=== PATIENT | female | born 1980 | race Hispanic/Latino ===

== ENCOUNTER 2022-02-22 14:57 | Inpatient (IN) | payer BC ==
[2022-02-22] MEDS ORDERED: SODIUM CHLORIDE 0.9% 1000 ML 1,000 ML IV ONE ×2 (16:09→17:19)
[2022-02-22 16:42] LABS: Mean Corpuscular HGB Conc 30 % (30-34); Platelet Count 352 K/mm3 (140-440); Red Blood Count 4.02 M/mm3 (3.65-5.03); Red Cell Distribution Width 15.4 % (13.2-15.2)
[2022-02-22 16:52] LABS: Hematocrit 45.6 % (30.3-42.9); Hemoglobin 13.6 gm/dl (10.1-14.3); Mean Corpuscular Volume 113 fl (79-97)
[2022-02-22 17:04] LABS: Mucus,Urine FEW /HPF; WBC,Urine < 1.0 /HPF (0.0-6.0)
[2022-02-22 17:07] LABS: Alanine Aminotransferase 31 units/L (7-56); Albumin 4.9 g/dL (3.9-5); BUN/Creatinine Ratio 28; Blood Urea Nitrogen 25 mg/dL (7-17); Calcium 9.8 mg/dL (8.4-10.2); Hemolysis Index 74
--- NOTE | 2022-02-22 17:11 | Emergency Department Report ---
ED General Adult HPI - General Chief complaint: Hyperglycemia Stated complaint: HYPERGLYCEMIA Time Seen by Provider: 02/22/22 16:02 Source: patient, EMS Mode of arrival: Stretcher Limitations: No Limitations - History of Present Illness Initial comments: Patient is a 41-year-old female with history of insulin-dependent diabetes brought in by EMS for hyperglycemia and worsening mental status. She is accompanied by her who states she was in DKA roughly a month ago. They report malfunctioning of her insulin pump yesterday. She reports associated nausea. EMS unable to establish IV in route. Severity scale (0 -10): 0 - Related Data Allergies Allergy/AdvReac Type Severity Reaction Status Date / Time No Known Allergies Allergy Unverified 02/22/22 16:40 ED Review of Systems ROS: Stated complaint: HYPERGLYCEMIA Other details as noted in HPI Constitutional: malaise Respiratory: denies: cough, shortness of breath, wheezing Cardiovascular: denies: chest pain, palpitations Gastrointestinal: nausea. denies: abdominal pain, vomiting Skin: denies: rash, lesions Neurological: denies: headache, weakness, paresthesias Psychiatric: denies: anxiety, depression ED Physical Exam - General Limitations: No Limitations General appearance: alert, in distress - Head Head exam: Present: atraumatic, normocephalic - Neck Neck exam: Present: normal inspection - Respiratory Respiratory exam: Present: normal lung sounds bilaterally, other (Kussmaul's res piration) - Cardiovascular Cardiovascular Exam: Present: normal rhythm, tachycardia, normal heart sounds - GI/Abdominal GI/Abdominal exam: Present: soft. Absent: distended, tenderness - Rectal Rectal exam: Present: deferred - Speculum exam: Absent: vaginal discharge - Neurological Exam Neurological exam: Present: alert, oriented X3, CN II-XII intact - Psychiatric Psychiatric exam: Present: normal affect, normal mood - Skin Skin exam: Present: warm, dry, intact, normal color ED Course Vital Signs 02/22/22 02/22/22 02/22/22 15:19 16:38 16:41 Temperature 98.2 F Pulse Rate 130 H 143 H Respiratory 16 29 H 28 H Rate Blood Pressure 136/82 122/48 [Left] O2 Sat by Pulse 100 99 99 Oximetry ED Medical Decision Making - Lab Data Result diagrams: 02/22/22 16:20 02/22/22 16:20 - EKG Data -: EKG Interpreted by Me EKG shows normal: sinus rhythm Rate: tachycardia - Medical Decision Making Patient brought in by EMS with complaint of hyperglycemia and altered mental status. IV access obtained and patient started on IV fluids. Labs reviewed and are consistent with DKA. CO2 is 3. Anion gap is 46. White blood cell count 22. We will start insulin infusion and admit to ICU. Critical care attestation.: If time is entered above; I have spent that time in minutes in the direct care of this critically ill patient, excluding procedure time. ED Disposition Clinical Impression: DKA (diabetic ketoacidosis) Disposition: ADMITTED INPATIENT Is pt being admited?: Yes Condition: Critical Instructions: Diabetic Ketoacidosis (ED)
[2022-02-22 17:15] LABS: Bilirubin,Urine Negative (Negative); Color,Urine Straw (Yellow)
[2022-02-22 17:16] LABS: Blood,Urine Trace (Negative); Urobilinogen,Urine < 2.0 mg/dL (<2.0)
[2022-02-22 17:43] LABS: Bilirubin,Direct < 0.2 mg/dL (0-0.2)
--- NOTE | 2022-02-22 17:43 | History and Physical Report ---
History of Present Illness Chief complaint: Her blood sugar is high History of present illness: 41 YO Female with DM with insulin pump in place presents to ED for evaluation. Patient is confused and lethargic and is unable to provide history. Patient history taken from EMS staff, ED staff, as well as the patient's who was at bedside during exam and interview. As per the patient reported malfunctioning of her insulin pump yesterday and has experienced elevated blood glucose levels over the past 1 day. Patient was found to have worsening confusion today. EMS was notified and upon arrival the patient was found to be in distress and subsequently transported to [facility] for further care and evaluation of the aforementioned symptoms. The patient was seen and evaluated in the emergency department. All lab and imaging studies reviewed. The patient was found to have DKA complicated by metabolic encephalopathy, sepsis, volume depletion. Patient admitted to ICU and initiated on DKA protocol as well as sepsis protocol. No reports of fever, chills, chest pain, palpitation, productive cough, skin rash, recent contact, known exposure to COVID-19. No prior admission for review. No medication listed at time of admission for reconciliation. Advanced care planning conducted in ED. Critical care team consulted in ED. Past History Past Medical History: diabetes Past Surgical History: No surgical history, Other (Reviewed) Social history: , lives with family Family history: hypertension Medications and Allergies Allergies Allergy/AdvReac Type Severity Reaction Status Date / Time No Known Allergies Allergy Unverified 02/22/22 16:40 Active Meds: Active Medications Sodium Chloride (Nacl 0.9% 1000 Ml) 1,000 mls @ 999 mls/hr IV BOLUS ONE Stop: 02/22/22 18:19 Review of Systems ROS unobtainable: due to mental status Exam - Constitutional Vitals: Temp Pulse Resp BP Pulse Ox 98.2 F 143 H 28 H 122/48 99 02/22/22 15:19 02/22/22 16:41 02/22/22 16:41 02/22/22 16:41 02/22/22 16:41 General appearance: Present: severe distress - EENT Eyes: Present: PERRL ENT: clear oral mucosa, hearing decreased, other (Oral mucosa dry) - Neck Neck: Present: supple, normal ROM - Respiratory Respiratory effort: normal Respiratory: bilateral: diminished - Cardiovascular Rhythm: regular Heart Sounds: Present: S1 & S2 - Extremities Extremities: pulses symmetrical, No edema Peripheral Pulses: abnormal (Capillary refill greater than 3.5 seconds) - Abdominal General gastrointestinal: Present: soft, non-tender, non-distended, normal bowel sounds Female genitourinary: Present: normal - Integumentary Integumentary: Present: dry, clammy, decreased turgor - Musculoskeletal Musculoskeletal: generalized weakness - Psychiatric Psychiatric: no appropriate mood/affect, no intact judgment & insight, no memory intact - Neurologic Neurologic: CNII-XII intact, moves all extremities, no gait normal Results - Labs CBC & Chem 7: 02/22/22 16:20 02/22/22 17:56 Labs: Abnormal lab results 02/22/22 02/22/22 Range/Units 16:20 16:20 WBC 22.6 H (4.5-11.0) K/mm3 Hct 45.6 H (30.3-42.9) % MCV 113 H (79-97) fl MCH 34 H (28-32) pg RDW 15.4 H (13.2-15.2) % Potassium 5.7 H (3.6-5.0) mmol/L Chloride 92.5 L (98-107) mmol/L Assessment and Plan - Patient Problems (1) DKA (diabetic ketoacidosis) Current Visit: Yes Status: Acute Qualifiers: Diabetes mellitus complication detail: with coma Plan to address problem: DKA protocol: Insulin drip, IV fluid resuscitation therapy, serial lactic acid level, anion gap, monitor fluid balance, serial BMP The high probability of a clinically significant, sudden or life threatening deterioration of the [endocrine, neuro, renal] system(s) required my full and direct attention, intervention and personal management. The aggregate critical care time was [95] minutes. This time is in addition to time spent performing reported procedures but includes the following: [x] Data Review and interpretation [x] Patient assessment and monitoring of vital signs [x] Documentation [x] Medication orders and management (2) Sepsis Current Visit: Yes Status: Acute Qualifiers: Severe sepsis shock status: unspecified Plan to address problem: Sepsis protocol: CBC, BMP, chest x-ray, urinalysis, IV antibiotic therapy, IV fluid resuscitation therapy, maintain mean arterial pressure greater than or equal to 65, blood culture. (3) Toxic metabolic encephalopathy Current Visit: Yes Status: Acute Plan to address problem: Treat sepsis, IV fluid resuscitation therapy, supportive care. (4) Volume depletion Current Visit: Yes Status: Acute Plan to address problem: IV fluid resuscitation therapy, BMP, repeat BMP in a.m., monitor fluid balance. (5) Hyperkalemia Current Visit: Yes Status: Acute Plan to address problem: BMP, repeat BMP in a.m., IV fluid resuscitation therapy, insulin therapy, no EKG changes. (6) DVT prophylaxis Current Visit: Yes Status: Acute Plan to address problem: SCD to bilateral lower extremities while in bed (7) Advance care planning Current Visit: Yes Status: Acute Plan to address problem: Disease education done, care plan discussed, diagnoses discussed, prognosis discussed, patient is full code. Patient acknowledges understanding and agreement with current care plan. +30 minutes. (8) Preventative health care Current Visit: Yes Status: Acute Plan to address problem: Patient has been counseled regarding consistent carbohydrate diet, monitoring of insulin pump. +30 minutes.
[2022-02-22] MEDS ORDERED: ALBUTEROL 2.5 MG/3 ML NEBU IH PRN (17:44)
[2022-02-22] MEDS ORDERED: HYDROmorphone 0.5 MG/0.5 ML INJ IV PRN ×2 (17:44)
[2022-02-22] MEDS ORDERED: DEXTROSE 50% IN WATER (25GM) 50 ML SYRINGE IV PRN (17:44)
[2022-02-22] MEDS ORDERED: ACETAMINOPHEN 325 MG TAB PO PRN ×2 (17:44)
[2022-02-22] MEDS ORDERED: oxyCODONE /ACETAMINOPHEN 5-325MG TAB PO PRN (17:44)
[2022-02-22] MEDS ORDERED: SODIUM BICARB 8.4% 50 MEQ/50 ML SYRINGE IV ONE ×2 (17:49)
--- NOTE | 2022-02-22 17:53 | XRay Report ---
CHEST 1 VIEW INDICATION: DKA, leukocytosis. COMPARISON: None. FINDINGS: Support devices: None. Heart: Normal. Lungs/Pleura: No acute pulmonary or pleural findings. IMPRESSION: 1. No acute findings. Signer Name: Jc Childress MD Signed: 02/22/2022 5:49 PM Workstation Name: [id number]
[2022-02-22] MEDS ORDERED: SODIUM CHLORIDE 0.9% IV ONE (18:15)
[2022-02-22] MEDS ORDERED: SODIUM CHLORIDE 0.9% 1000 ML IV SOLN IV ONE (18:15)
[2022-02-22 18:21] LABS: Band Neutrophils # (Manual) 0.9 K/mm3; Basophils % (Manual) 0 % (0.0-1.8); Eosinophils % (Manual) 0 % (0.0-4.3); Total Cells Counted 100
[2022-02-22 18:26] LABS: Anisocytosis Few; Burr Cells Rare; Large Platelets Rare; Macrocytosis Few; Platelet Estimate Consistent w Auto; Poikilocytosis Rare
[2022-02-22 18:37] LABS: BUN/Creatinine Ratio 30; Blood Urea Nitrogen 24 mg/dL (7-17); Calcium 8.7 mg/dL (8.4-10.2); Hemolysis Index 236
[2022-02-22] MEDS ORDERED: INSULIN REGULAR, HUMAN 100 UNITS in SODIUM CHLORIDE 0.9% 99 ML IV SCH (19:00)
[2022-02-22] MEDS ORDERED: KETAMINE 500 MG/5 ML VIAL MDV IV ONE (19:00)
[2022-02-22] MEDS ORDERED: KETAMINE 500 MG/5 ML VIAL MDV ONE (19:06)
[2022-02-22] MEDS ORDERED: LORazepam 2 MG/ML VIAL ONE (19:33)
[2022-02-22] MEDS ORDERED: LORazepam 2 MG/ML VIAL IV ONE ×2 (19:50→20:00)
--- NOTE | 2022-02-22 20:14 | Procedure Note ---
Date of procedure: 02/22/22 Pre-op diagnosis: DKA, sepsis Post-op diagnosis: same Procedure: Right femoral vein triple-lumen catheter placement ultrasound guidance The patient was prepped and draped in the usual sterile fashion. A timeout was taken with the patient's nurse at bedside to identify the correct patient, the correct procedure, and the correct operative site. Ultrasound was utilized to localize the right femoral vein without difficulty. Local anesthesia obtained with 1% lidocaine. The Seldinger technique was utilized to access the right femoral vein under ultrasound guidance while using a seeker needle without difficulty. A guidewire was then advanced into the right femoral vein and the seeker needle removed. A scalpel was used to incise the skin. A dilator was then passed over the guidewire into the right femoral vein and subsequently removed. A preflush triple-lumen catheter was then advanced into the right femoral vein without difficulty and the guidewire subsequently removed. All 3 ports flush and drawl with ease. Estimated blood loss minimal. Complications none. Specimens none. Anesthesia: local Surgeon: RADHA VU Estimated blood loss: minimal Disposition: ICU
[2022-02-22] MEDS ORDERED: SODIUM CHLORIDE 0.9% 1000 ML 1,000 ML IV SCH (21:30)
[2022-02-23 00:01] LABS: Blood Urea Nitrogen 19 mg/dL (7-17); Calcium 6.5 mg/dL (8.4-10.2); Hemolysis Index 12
[2022-02-23 00:28] LABS: BUN/Creatinine Ratio 27
[2022-02-23 00:57] LABS: ABG Base Excess -27.1 mmol/L (-2.0-3.0); ABG HCO3 2.7 mmol/L (20.0-26.0); ABG Methemoglobin 0.7 % (0.0-1.5); ABG Oxygen Saturation 96.8 % (95.0-99.0); ABG PCO2 11.9 mm Hg; ABG PO2 114.1 mm Hg (80.0-90.0)
[2022-02-23 01:04] LABS: ABG PH 6.973 pH Units (7.350-7.450)
--- NOTE | 2022-02-23 01:13 | XRay Report ---
CHEST 1 VIEW INDICATION / CLINICAL INFORMATION: crackles and tachypnea. COMPARISON: 02/22/2022 FINDINGS: SUPPORT DEVICES: None. HEART / MEDIASTINUM: No significant abnormality. LUNGS / PLEURA: Right lower lobe airspace consolidation No pneumothorax. ADDITIONAL FINDINGS: No significant additional findings. IMPRESSION: 1. Right lower lobe infiltrate likely represents pneumonia Signer Name: Kin Lopez MD Signed: 02/23/2022 1:09 AM Workstation Name: [id number]
[2022-02-23] MEDS ORDERED: SODIUM BICARB 8.4% 50 MEQ/50 ML SYRINGE IV ONE (01:35)
[2022-02-23] MEDS ORDERED: SODIUM BICARBONATE 100 MEQ in WATER FOR INJECTION (PF) 1,000 ML IV SCH (02:00)
[2022-02-23] MEDS: D5W/0.45% NACL/KCL 20 MEQ 20 MEQ/1,000 ML BAG IV SCH ×2 (04:36→11:52)
[2022-02-23 09:20] LABS: Blood Urea Nitrogen 17 mg/dL (7-17); Hemolysis Index 0
[2022-02-23 09:37] LABS: Hematocrit 34.4 % (30.3-42.9); Hemoglobin 11.1 gm/dl (10.1-14.3); Mean Corpuscular HGB Conc 32 % (30-34); Mean Corpuscular Volume 105 fl (79-97); Platelet Count 188 K/mm3 (140-440); Red Blood Count 3.28 M/mm3 (3.65-5.03); Red Cell Distribution Width 14.1 % (13.2-15.2)
[2022-02-23 09:53] LABS: BUN/Creatinine Ratio 24
--- NOTE | 2022-02-23 10:11 | Progress Note ---
<ALLA FARIA - Last Filed: 02/23/22 17:16> Assessment and Plan Assessment and plan: This is a 41-year-old female with known past medical history of IDDM and hypothyroidism admitted for DKA Hospital Course to Date: 02/23: Mentation improved this am, stable on RA. Remains on DKA protocal and b carb gtt. Will hold sodium bcarb gtt in setting of hypernatremia, CO2 and anion gap improved. Continue insulin gtt and IVF resuscitation per DKA protocol. This an CXR reviewed, continue IV antibiotic for now. Repeat labs ordered, Check CRP and procal. Continue to trend lactic acid. Monitor and replete electrolytes as needed. Assessment and Plan #DKA (Diabetic Ketoacidosis) #Severe Anion Gap Metabolic Acidosis #IDDM- with insulin pump - [place] resident, here in [facility] for business - Insulin pump malfunction, patient did not have any back up insulin - Presented with high BG, with severe anion gap metabolic acidosis - DKA protocol was initiated and required Nabcarb gtt - Sodium Bcarb gtt held this am due to hypernatremia and CO2 improved - Continue insulin gtt and IVF resuscitation per DKA protocol - Monitor and replace electrolytes as needed - Monitor anion gap, serial Labs ordered - CCM consulted #Sepsis #CAP- RLL Pneumonia #Leukocytosis #Lactic Acidosis - CXR Right lower lobe infiltrate likely represents pneumonia - UA neg nitrate and leukocytes - With leukocytosis and elevated lactic - Patient is afebrile, stable on 2L NC - Empiric IV abx- Levaquin initiated - Trend CBC and Lactic acid - Check procal and CRP - CCM consulted #Acute Metabolic Encephalopathy - probably due to DKA - Mentation improved this am - Continue DKA protocol - Avoid benzodiazepine to reduce the possibility of delirium - PRN Analgesia for pain control - Maintenance of sleep-wake cycle #Hypernatremia #Hyperkalemia #Volume Depletion/Dehydration - Most likely due to DKA - ST on the monitor with no significant ST changes - Continue insulin gtt and IVF ressucitation per DKA protocol - Hold NaBcarb for now - Strict intake and output - Avoid nephrotoxic medications - Monitor and replace electrolytes as needed #Hypothyroidism - On levothyroxine and Liothyronine sodium at home - Resume home meds, Liothyronine sodium- nonformulary - Okay to use own med if check and approve by pharmacy #GI/DVT Prophylaxis - PPI- Pepcid - SCD to bilateral lower extremities while in bed #Advance Care Planning - Disease education, care plan discussed, diagnoses and prognosis discussed with patient and her at the bedside. Patient is full code. They acknowledged understanding and agreement with current care plan #Preventative Health Care - Patient has been counseled regarding consistent carbohydrate diet, monitoring of insulin pump The high probability of a clinically significant, sudden or life threatening deterioration of the [multiple] system(s) required my full and direct attention, intervention and personal management. The aggregate critical care time was [60] minutes. This time is in addition to time spent performing reported procedures but includes the following: [x] Data Review and interpretation [x] Patient assessment and monitoring of vital signs [x] Documentation [x] Medication orders and management Disposition Plan: ICU Total Time Spent with Patient (Minutes): 60 History Interval history: Patient seen and examined at the bedside. Drowsy but fully AAO, on 2L NC. Denied any pain nor any discomfort, n/v, no s/s of any acute distress. Patient remains on the DKA protocol, TD overnight Hospitalist Physical - Constitutional Vitals: Temp Pulse Resp BP Pulse Ox 97.5 F L 115 H 25 H 119/78 97 02/23/22 06:30 02/23/22 09:00 02/23/22 09:00 02/23/22 09:00 02/23/22 08:00 General appearance: Present: no acute distress - EENT Eyes: Present: PERRL, EOM intact ENT: hearing intact - Neck Neck: Present: normal ROM - Respiratory Respiratory effort: normal Respiratory: bilateral: diminished - Cardiovascular Rhythm: regular Heart Sounds: Present: S1 & S2 - Extremities Extremities: no ischemia, pulses intact, pulses symmetrical Peripheral Pulses: within normal limits - Abdominal General gastrointestinal: soft, non-distended, normal bowel sounds - Integumentary Integumentary: Present: clear, warm, dry - Psychiatric Psychiatric: appropriate mood/affect, cooperative, other (Drowsy) - Neurologic Neurologic: CNII-XII intact, moves all extremities, other (Drowsy) - Allied Health Allied health notes reviewed: nursing Results - Labs CBC & Chem 7: 02/23/22 08:34 02/23/22 08:34 Labs: Laboratory Last Values WBC 13.5 K/mm3 (4.5-11.0) H 02/23/22 08:34 RBC 3.28 M/mm3 (3.65-5.03) L 02/23/22 08:34 Hgb 11.1 gm/dl (10.1-14.3) 02/23/22 08:34 Hct 34.4 % (30.3-42.9) D 02/23/22 08:34 MCV 105 fl (79-97) H 02/23/22 08:34 MCH 34 pg (28-32) H 02/23/22 08:34 MCHC 32 % (30-34) 02/23/22 08:34 RDW 14.1 % (13.2-15.2) 02/23/22 08:34 Plt Count 188 K/mm3 (140-440) 02/23/22 08:34 Add Manual Diff Complete 02/22/22 16:20 Total Counted 100 02/22/22 16:20 Seg Neuts % (Manual) 84.0 % (40.0-70.0) H 02/22/22 16:20 Band Neutrophils % 4.0 % 02/22/22 16:20 Lymphocytes % (Manual) 8.0 % (13.4-35.0) L 02/22/22 16:20 Reactive Lymphs % (Man) 0 % 02/22/22 16:20 Monocytes % (Manual) 3.0 % (0.0-7.3) 02/22/22 16:20 Eosinophils % (Manual) 0 % (0.0-4.3) 02/22/22 16:20 Basophils % (Manual) 0 % (0.0-1.8) 02/22/22 16:20 Metamyelocytes % 1.0 % 02/22/22 16:20 Myelocytes % 0 % 02/22/22 16:20 Promyelocytes % 0 % 02/22/22 16:20 Blast Cells % 0 % 02/22/22 16:20 Nucleated RBC % Not Reportable 02/22/22 16:20 Seg Neutrophils # Man 19.0 K/mm3 (1.8-7.7) H 02/22/22 16:20 Band Neutrophils # 0.9 K/mm3 02/22/22 16:20 Lymphocytes # (Manual) 1.8 K/mm3 (1.2-5.4) 02/22/22 16:20 Abs React Lymphs (Man) 0.0 K/mm3 02/22/22 16:20 Monocytes # (Manual) 0.7 K/mm3 (0.0-0.8) 02/22/22 16:20 Eosinophils # (Manual) 0.0 K/mm3 (0.0-0.4) 02/22/22 16:20 Basophils # (Manual) 0.0 K/mm3 (0.0-0.1) 02/22/22 16:20 Metamyelocytes # 0.2 K/mm3 02/22/22 16:20 Myelocytes # 0.0 K/mm3 02/22/22 16:20 Promyelocytes # 0.0 K/mm3 02/22/22 16:20 Blast Cells # 0.0 K/mm3 02/22/22 16:20 WBC Morphology Not Reportable 02/22/22 16:20 Hypersegmented Neuts Not Reportable 02/22/22 16:20 Hyposegmented Neuts 1+ 02/22/22 16:20 Hypogranular Neuts Not Reportable 02/22/22 16:20 Smudge Cells Not Reportable 02/22/22 16:20 Toxic Granulation Not Reportable 02/22/22 16:20 Toxic Vacuolation Not Reportable 02/22/22 16:20 Dohle Bodies Not Reportable 02/22/22 16:20 Pelger-Huet Anomaly Not Reportable 02/22/22 16:20 Aracely Rods Not Reportable 02/22/22 16:20 Platelet Estimate Consistent w auto 02/22/22 16:20 Clumped Platelets Not Reportable 02/22/22 16:20 Plt Clumps, EDTA Not Reportable 02/22/22 16:20 Large Platelets Rare 02/22/22 16:20 Giant Platelets Not Reportable 02/22/22 16:20 Platelet Satelliting Not Reportable 02/22/22 16:20 Plt Morphology Comment Not Reportable 02/22/22 16:20 RBC Morphology Not Reportable 02/22/22 16:20 Dimorphic RBCs Not Reportable 02/22/22 16:20 Polychromasia Not Reportable 02/22/22 16:20 Hypochromasia Not Reportable 02/22/22 16:20 Poikilocytosis Rare 02/22/22 16:20 Anisocytosis Few 02/22/22 16:20 Microcytosis Not Reportable 02/22/22 16:20 Macrocytosis Few 02/22/22 16:20 Spherocytes Not Reportable 02/22/22 16:20 Pappenheimer Bodies Not Reportable 02/22/22 16:20 Sickle Cells Not Reportable 02/22/22 16:20 Target Cells Not Reportable 02/22/22 16:20 Tear Drop Cells Not Reportable 02/22/22 16:20 Ovalocytes Not Reportable 02/22/22 16:20 Helmet Cells Not Reportable 02/22/22 16:20 [place] Bodies Not Reportable 02/22/22 16:20 Geary Rings Not Reportable 02/22/22 16:20 [place] Cells Rare 02/22/22 16:20 Bite Cells Not Reportable 02/22/22 16:20 Crenated Cell Not Reportable 02/22/22 16:20 Elliptocytes Not Reportable 02/22/22 16:20 Acanthocytes (Spur) Not Reportable 02/22/22 16:20 Rouleaux Not Reportable 02/22/22 16:20 Hemoglobin C Crystals Not Reportable 02/22/22 16:20 Schistocytes Not Reportable 02/22/22 16:20 Malaria parasites Not Reportable 02/22/22 16:20 [place]ton Bodies Not Reportable 02/22/22 16:20 Hem Pathologist Commnt No 02/22/22 16:20 ABG pH 6.973 pH Units (7.350-7.450) L* 02/23/22 00:40 ABG pCO2 11.9 mm Hg 02/23/22 00:40 ABG pO2 114.1 mm Hg (80.0-90.0) H 02/23/22 00:40 ABG HCO3 2.7 mmol/L (20.0-26.0) L 02/23/22 00:40 ABG O2 Saturation 96.8 % (95.0-99.0) 02/23/22 00:40 ABG O2 Content 14.9 (0.0-44) 02/23/22 00:40 ABG Base Excess -27.1 mmol/L (-2.0-3.0) L 02/23/22 00:40 ABG Hemoglobin 11.0 gm/dl (12.0-16.0) L 02/23/22 00:40 ABG Carboxyhemoglobin 1.2 % (0.0-5.0) 02/23/22 00:40 ABG Methemoglobin 0.7 % (0.0-1.5) 02/23/22 00:40 Oxyhemoglobin 95.0 % (95.0-99.0) 02/23/22 00:40 FiO2 28 % 02/23/22 00:40 Sodium 146 mmol/L (137-145) H 02/23/22 08:34 Potassium 3.8 mmol/L (3.6-5.0) D 02/23/22 08:34 Chloride 116.9 mmol/L (98-107) H 02/23/22 08:34 Carbon Dioxide 14 mmol/L (22-30) L D 02/23/22 08:34 Anion Gap 19 mmol/L 02/23/22 08:34 BUN 17 mg/dL (7-17) 02/23/22 08:34 Creatinine 0.7 mg/dL (0.6-1.2) 02/23/22 08:34 Estimated GFR > 60 ml/min 02/23/22 08:34 BUN/Creatinine Ratio 24 % 02/23/22 08:34 Glucose 166 mg/dL (65-100) H 02/23/22 08:34 POC Glucose 155 mg/dL (70-105) H 02/23/22 06:54 Ketones Quantitative Trace (Negative) 02/22/22 16:20 Lactic Acid 1.50 mmol/L (0.7-2.0) 02/23/22 08:34 Calcium 7.0 mg/dL (8.4-10.2) L 02/23/22 08:34 Phosphorus 0.80 mg/dL (2.5-4.5) L* D 02/23/22 08:34 Magnesium 1.70 mg/dL (1.7-2.3) 02/23/22 08:34 Total Bilirubin 0.20 mg/dL (0.1-1.2) 02/22/22 16:20 Direct Bilirubin < 0.2 mg/dL (0-0.2) 02/22/22 16:20 Indirect Bilirubin 0.0 mg/dL 02/22/22 16:20 AST 46 units/L (5-40) H 02/22/22 16:20 ALT 31 units/L (7-56) 02/22/22 16:20 Alkaline Phosphatase 102 units/L (35-129) 02/22/22 16:20 Total Protein 8.0 g/dL (6.3-8.2) 02/22/22 16:20 Albumin 4.9 g/dL (3.9-5) 02/22/22 16:20 Albumin/Globulin Ratio 1.6 % 02/22/22 16:20 Lipase 50 units/L (13-60) 02/22/22 16:20 Urine Color Straw (Yellow) 02/22/22 16:44 Urine Turbidity Clear (Clear) 02/22/22 16:44 Urine pH 5.0 (5.0-7.0) 02/22/22 16:44 Ur Specific Alva 1.025 (1.003-1.030) 02/22/22 16:44 Urine Protein 30 mg/dl mg/dL (Negative) 02/22/22 16:44 Urine Glucose (UA) 500 mg/dL (Negative) 02/22/22 16:44 Urine Ketones 300 mg/dL (Negative) 02/22/22 16:44 Urine Blood Trace (Negative) 02/22/22 16:44 Urine Nitrite Negative (Negative) 02/22/22 16:44 Ur Reducing Substances Not Reportable 02/22/22 16:44 Urine Bilirubin Negative (Negative) 02/22/22 16:44 Urine Ictotest Not Reportable 02/22/22 16:44 Urine Urobilinogen < 2.0 mg/dL (<2.0) 02/22/22 16:44 Ur Leukocyte Esterase Negative (Negative) 02/22/22 16:44 Urine WBC (Auto) < 1.0 /HPF (0.0-6.0) 02/22/22 16:44 Urine RBC (Auto) 1.0 /HPF (0.0-6.0) 02/22/22 16:44 U Epithel Cells (Auto) 4.0 /HPF (0-13.0) 02/22/22 16:44 Urine Mucus Few /HPF 02/22/22 16:44 Blood Type A POSITIVE 02/22/22 18:08 Antibody Screen Negative 02/22/22 18:08 Khalil/IV: Voiding Method Incontinent Active Medications - Current Medications Current Medications: Generic Name Dose Route Start Last Admin Trade Name Freq PRN Reason Stop Dose Admin Acetaminophen 650 mg 02/22/22 17:44 Acetaminophen 325 Mg Tab PO Q6H PRN Pain MILD(1-3)/Fever >100.5/YIN Albuterol 2.5 mg 02/22/22 17:44 Albuterol 2.5 Mg/3 Ml Nebu IH Q3HRT PRN Shortness Of Breath Dextrose 0 ml 02/22/22 17:44 Dextrose 50% In Water (25gm) 50 Ml Syringe IV Q30MIN PRN Hypoglycemia Protocol Hydromorphone HCl 0.25 mg 02/22/22 17:44 02/22/22 18:36 Hydromorphone 0.5 Mg/0.5 Ml Inj IV 0.25 mg Q4H PRN Administration Pain, Moderate (4-6) Hydromorphone HCl 0.5 mg 02/22/22 17:44 Hydromorphone 0.5 Mg/0.5 Ml Inj IV Q23H PRN Pain , Severe (7-10) Insulin Human Regular 100 100 mls @ 1 mls/hr 02/22/22 19:00 02/23/22 09:09 units/ Sodium Chloride IV 2 units/hr TITR NATASHA 2 mls/hr Titration Protocol 1 UNITS/HR Levofloxacin/Dextrose 750 mg in 150 mls @ 100 mls/hr 02/22/22 19:30 02/22/22 19:27 Levaquin 750mg/150ml IV 100 mls/hr Q24H NATASHA Administration Protocol Potassium Chloride/Dextrose/Sod Cl 20 meq in 1,000 mls @ 125 mls/hr 02/23/22 05:00 02/23/22 04:36 D5w/0.45% Nacl/Kcl 20 Meq IV 125 mls/hr DIRECT NATASHA Administration Potassium Phosphate 30 mmol/ 510 mls @ 85 mls/hr 02/23/22 11:00 Sodium Chloride IV 02/23/22 16:59 ONCE ONE Oxycodone/Acetaminophen 1 tab 02/22/22 17:44 Oxycodone /Acetaminophen 5-325mg Tab PO Q6H PRN Pain, Moderate (4-6) Sodium Chloride 10 ml 02/22/22 22:00 02/23/22 00:39 Sodium Chloride 0.9% 10 Ml Flush Syringe IV 10 ml BID NATASHA Administration Sodium Chloride 10 ml 02/22/22 17:44 Sodium Chloride 0.9% 10 Ml Flush Syringe IV PRN PRN LINE FLUSH <JOSE ALBERTOMIESHA Gabriel - Last Filed: 02/24/22 07:16> Assessment and Plan Assessment and plan: I saw and evaluated the patient. I agree with the findings and the plan of care as documented in the Nurse Practitioner's~note, with the following corrections and additions. Hospitalist Physical - Constitutional Vitals: Temp Pulse Resp BP Pulse Ox 99.0 F 107 H 28 H 108/74 97 02/24/22 03:36 02/24/22 06:00 02/24/22 06:00 02/24/22 06:00 02/24/22 06:00 Results - Labs CBC & Chem 7: 02/24/22 04:00 02/24/22 04:00 Labs: Laboratory Last Values WBC 11.0 K/mm3 (4.5-11.0) 02/24/22 04:00 RBC 3.25 M/mm3 (3.65-5.03) L 02/24/22 04:00 Hgb 11.0 gm/dl (10.1-14.3) 02/24/22 04:00 Hct 32.8 % (30.3-42.9) 02/24/22 04:00 MCV 101 fl (79-97) H 02/24/22 04:00 MCH 34 pg (28-32) H 02/24/22 04:00 MCHC 34 % (30-34) 02/24/22 04:00 RDW 14.1 % (13.2-15.2) 02/24/22 04:00 Plt Count 176 K/mm3 (140-440) 02/24/22 04:00 Add Manual Diff Complete 02/22/22 16:20 Total Counted 100 02/22/22 16:20 Seg Neuts % (Manual) 84.0 % (40.0-70.0) H 02/22/22 16:20 Band Neutrophils % 4.0 % 02/22/22 16:20 Lymphocytes % (Manual) 8.0 % (13.4-35.0) L 02/22/22 16:20 Reactive Lymphs % (Man) 0 % 02/22/22 16:20 Monocytes % (Manual) 3.0 % (0.0-7.3) 02/22/22 16:20 Eosinophils % (Manual) 0 % (0.0-4.3) 02/22/22 16:20 Basophils % (Manual) 0 % (0.0-1.8) 02/22/22 16:20 Metamyelocytes % 1.0 % 02/22/22 16:20 Myelocytes % 0 % 02/22/22 16:20 Promyelocytes % 0 % 02/22/22 16:20 Blast Cells % 0 % 02/22/22 16:20 Nucleated RBC % Not Reportable 02/22/22 16:20 Seg Neutrophils # Man 19.0 K/mm3 (1.8-7.7) H 02/22/22 16:20 Band Neutrophils # 0.9 K/mm3 02/22/22 16:20 Lymphocytes # (Manual) 1.8 K/mm3 (1.2-5.4) 02/22/22 16:20 Abs React Lymphs (Man) 0.0 K/mm3 02/22/22 16:20 Monocytes # (Manual) 0.7 K/mm3 (0.0-0.8) 02/22/22 16:20 Eosinophils # (Manual) 0.0 K/mm3 (0.0-0.4) 02/22/22 16:20 Basophils # (Manual) 0.0 K/mm3 (0.0-0.1) 02/22/22 16:20 Metamyelocytes # 0.2 K/mm3 02/22/22 16:20 Myelocytes # 0.0 K/mm3 02/22/22 16:20 Promyelocytes # 0.0 K/mm3 02/22/22 16:20 Blast Cells # 0.0 K/mm3 02/22/22 16:20 WBC Morphology Not Reportable 02/22/22 16:20 Hypersegmented Neuts Not Reportable 02/22/22 16:20 Hyposegmented Neuts 1+ 02/22/22 16:20 Hypogranular Neuts Not Reportable 02/22/22 16:20 Smudge Cells Not Reportable 02/22/22 16:20 Toxic Granulation Not Reportable 02/22/22 16:20 Toxic Vacuolation Not Reportable 02/22/22 16:20 Dohle Bodies Not Reportable 02/22/22 16:20 Pelger-Huet Anomaly Not Reportable 02/22/22 16:20 Aracely Rods Not Reportable 02/22/22 16:20 Platelet Estimate Consistent w auto 02/22/22 16:20 Clumped Platelets Not Reportable 02/22/22 16:20 Plt Clumps, EDTA Not Reportable 02/22/22 16:20 Large Platelets Rare 02/22/22 16:20 Giant Platelets Not Reportable 02/22/22 16:20 Platelet Satelliting Not Reportable 02/22/22 16:20 Plt Morphology Comment Not Reportable 02/22/22 16:20 RBC Morphology Not Reportable 02/22/22 16:20 Dimorphic RBCs Not Reportable 02/22/22 16:20 Polychromasia Not Reportable 02/22/22 16:20 Hypochromasia Not Reportable 02/22/22 16:20 Poikilocytosis Rare 02/22/22 16:20 Anisocytosis Few 02/22/22 16:20 Microcytosis Not Reportable 02/22/22 16:20 Macrocytosis Few 02/22/22 16:20 Spherocytes Not Reportable 02/22/22 16:20 Pappenheimer Bodies Not Reportable 02/22/22 16:20 Sickle Cells Not Reportable 02/22/22 16:20 Target Cells Not Reportable 02/22/22 16:20 Tear Drop Cells Not Reportable 02/22/22 16:20 Ovalocytes Not Reportable 02/22/22 16:20 Helmet Cells Not Reportable 02/22/22 16:20 [place] Bodies Not Reportable 02/22/22 16:20 Geary Rings Not Reportable 02/22/22 16:20 Kevin Cells Rare 02/22/22 16:20 Bite Cells Not Reportable 02/22/22 16:20 Crenated Cell Not Reportable 02/22/22 16:20 Elliptocytes Not Reportable 02/22/22 16:20 Acanthocytes (Spur) Not Reportable 02/22/22 16:20 Rouleaux Not Reportable 02/22/22 16:20 Hemoglobin C Crystals Not Reportable 02/22/22 16:20 Schistocytes Not Reportable 02/22/22 16:20 Malaria parasites Not Reportable 02/22/22 16:20 [place] Bodies Not Reportable 02/22/22 16:20 Hem Pathologist Commnt No 02/22/22 16:20 ABG pH 6.973 pH Units (7.350-7.450) L* 02/23/22 00:40 ABG pCO2 11.9 mm Hg 02/23/22 00:40 ABG pO2 114.1 mm Hg (80.0-90.0) H 02/23/22 00:40 ABG HCO3 2.7 mmol/L (20.0-26.0) L 02/23/22 00:40 ABG O2 Saturation 96.8 % (95.0-99.0) 02/23/22 00:40 ABG O2 Content 14.9 (0.0-44) 02/23/22 00:40 ABG Base Excess -27.1 mmol/L (-2.0-3.0) L 02/23/22 00:40 ABG Hemoglobin 11.0 gm/dl (12.0-16.0) L 02/23/22 00:40 ABG Carboxyhemoglobin 1.2 % (0.0-5.0) 02/23/22 00:40 ABG Methemoglobin 0.7 % (0.0-1.5) 02/23/22 00:40 Oxyhemoglobin 95.0 % (95.0-99.0) 02/23/22 00:40 FiO2 28 % 02/23/22 00:40 Sodium 141 mmol/L (137-145) 02/24/22 04:00 Potassium 3.5 mmol/L (3.6-5.0) L 02/24/22 04:00 Chloride 109.6 mmol/L (98-107) H 02/24/22 04:00 Carbon Dioxide 19 mmol/L (22-30) L 02/24/22 04:00 Anion Gap 16 mmol/L 02/24/22 04:00 BUN 9 mg/dL (7-17) 02/24/22 04:00 Creatinine 0.5 mg/dL (0.6-1.2) L 02/24/22 04:00 Estimated GFR > 60 ml/min 02/24/22 04:00 BUN/Creatinine Ratio 18 % 02/24/22 04:00 Glucose 98 mg/dL (65-100) 02/24/22 04:00 POC Glucose 146 mg/dL (70-105) H 02/23/22 16:26 Hemoglobin A1c 7.7 % (4-6) H 02/23/22 16:28 Ketones Quantitative Trace (Negative) 02/22/22 16:20 Lactic Acid 1.50 mmol/L (0.7-2.0) 02/23/22 08:34 Calcium 6.8 mg/dL (8.4-10.2) L 02/24/22 04:00 Phosphorus 1.80 mg/dL (2.5-4.5) L D 02/24/22 04:00 Magnesium 2.00 mg/dL (1.7-2.3) 02/24/22 04:00 Total Bilirubin 0.20 mg/dL (0.1-1.2) 02/22/22 16:20 Direct Bilirubin < 0.2 mg/dL (0-0.2) 02/22/22 16:20 Indirect Bilirubin 0.0 mg/dL 02/22/22 16:20 AST 46 units/L (5-40) H 02/22/22 16:20 ALT 31 units/L (7-56) 02/22/22 16:20 Alkaline Phosphatase 102 units/L (35-129) 02/22/22 16:20 C-Reactive Protein 3.20 mg/dL (0.00-1.30) H 02/23/22 08:34 Total Protein 8.0 g/dL (6.3-8.2) 02/22/22 16:20 Albumin 4.9 g/dL (3.9-5) 02/22/22 16:20 Albumin/Globulin Ratio 1.6 % 02/22/22 16:20 Lipase 50 units/L (13-60) 02/22/22 16:20 Procalcitonin 2.08 ng/mL (<0.15) 02/23/22 08:34 Urine Color Straw (Yellow) 02/22/22 16:44 Urine Turbidity Clear (Clear) 02/22/22 16:44 Urine pH 5.0 (5.0-7.0) 02/22/22 16:44 Ur Specific [place] 1.025 (1.003-1.030) 02/22/22 16:44 Urine Protein 30 mg/dl mg/dL (Negative) 02/22/22 16:44 Urine Glucose (UA) 500 mg/dL (Negative) 02/22/22 16:44 Urine Ketones 300 mg/dL (Negative) 02/22/22 16:44 Urine Blood Trace (Negative) 02/22/22 16:44 Urine Nitrite Negative (Negative) 02/22/22 16:44 Ur Reducing Substances Not Reportable 02/22/22 16:44 Urine Bilirubin Negative (Negative) 02/22/22 16:44 Urine Ictotest Not Reportable 02/22/22 16:44 Urine Urobilinogen < 2.0 mg/dL (<2.0) 02/22/22 16:44 Ur Leukocyte Esterase Negative (Negative) 02/22/22 16:44 Urine WBC (Auto) < 1.0 /HPF (0.0-6.0) 02/22/22 16:44 Urine RBC (Auto) 1.0 /HPF (0.0-6.0) 02/22/22 16:44 U Epithel Cells (Auto) 4.0 /HPF (0-13.0) 02/22/22 16:44 Urine Mucus Few /HPF 02/22/22 16:44 Blood Type A POSITIVE 02/22/22 18:08 Antibody Screen Negative 02/22/22 18:08 Khalil/IV: Voiding Method External Female Catheter Active Medications - Current Medications Current Medications: Generic Name Dose Route Start Last Admin Trade Name Freq PRN Reason Stop Dose Admin Acetaminophen 650 mg 02/22/22 17:44 Acetaminophen 325 Mg Tab PO Q6H PRN Pain MILD(1-3)/Fever >100.5/YIN Albuterol 2.5 mg 02/22/22 17:44 Albuterol 2.5 Mg/3 Ml Nebu IH Q3HRT PRN Shortness Of Breath Atorvastatin Calcium 20 mg 02/23/22 22:00 02/23/22 21:06 Atorvastatin 20 Mg Tab PO 20 mg QHS NATASHA Administration Dextrose 0 ml 02/22/22 17:44 Dextrose 50% In Water (25gm) 50 Ml Syringe IV Q30MIN PRN Hypoglycemia Protocol Famotidine 10 mg 02/23/22 22:00 02/23/22 21:06 Famotidine 10 Mg Tab PO 10 mg BID NATASHA Administration Levofloxacin/Dextrose 750 mg in 150 mls @ 100 mls/hr 02/22/22 19:30 02/23/22 21:06 Levaquin 750mg/150ml IV 100 mls/hr Q24H NATASHA Administration Protocol Insulin Glargine 25 units 02/23/22 19:30 02/23/22 19:57 Insulin Glargine 100 Units/Ml SUB-Q 25 units ONCE NATASHA Administration Insulin Human Lispro 0 unit 02/23/22 22:00 02/23/22 21:02 Insulin Lispro 100 Unit/Ml SUB-Q 2 unit ACHS NATASHA Administration Protocol Levothyroxine Sodium 112 mcg 02/24/22 06:00 02/24/22 05:35 Levothyroxine 112 Mcg Tab PO 112 mcg DAILY@0600 NATASHA Administration Oxycodone/Acetaminophen 1 tab 02/22/22 17:44 Oxycodone /Acetaminophen 5-325mg Tab PO Q6H PRN Pain, Moderate (4-6) Sodium Chloride 10 ml 02/22/22 22:00 02/23/22 21:07 Sodium Chloride 0.9% 10 Ml Flush Syringe IV 10 ml BID NATASHA Administration Sodium Chloride 10 ml 02/22/22 17:44 Sodium Chloride 0.9% 10 Ml Flush Syringe IV PRN PRN LINE FLUSH Nutrition/Malnutrition Assess - Dietary Evaluation Nutrition/Malnutrition Findings: Nutrition Notes Start: 02/23/22 11:51 Freq: Status: Active Protocol: Document 02/23/22 11:51 ELIZABETH (Rec: 02/23/22 11:56 ELIZABETH [email or web address]) Nutrition Notes Need for Assessment generated from: pad cutter Initial or Follow up Assessment Current Diagnosis Diabetes,Sepsis Other Pertinent Diagnosis DKA, Toxic metabolic encephalopathy Current Diet NPO Labs/Tests Na 146 BG 166 Phos 0.8 Pertinent Medications Insulin gtt, Mag sulfate x 1 dose, 30mmol KPhos x 1 dose, D5 1/2NS + 20mEq KCl at 125ml/ hr Height 5 ft 3 in Weight 55.9 kg [place] Body Weight (kg) 52.27 BMI 21.8 Weight Status Appropriate Subjective/Other Information Pt screened for skin risk ( Binu score: 15). Pt has an insulin pump. Per records, pt reported malfunctioning insulin pump [employer]. Burn Absent Trauma Absent Skin Integrity/Comment No skin breakdown reported Minimum of two criteria No Reduced Loan Manager Strength Measurably Reduced (severe) #1 Nutrition Diagnosis Inadequate oral intake Etiology DKA As Evidenced by Signs and Symptoms pt NPO Is patient on ventilator? No Is Patient Ambulatory and/or Out of Bed No REE-([facility]-confined to bed) 1429.116 Calculation Used for Recommendations [facility] Additional Notes Pro needs 1.2-2g/k-112g/ day Fluid needs 1ml/kcal Nutrition Intervention Change Diet Order: Advance diet when medically feasible Goal #1 Diet advancement to meet nutrient needs Anticipated Discharge Needs: CHO-controlled diet Follow-Up By: 02/26/22 Additional Comments F/U: diet advancement
[2022-02-23] MEDS ORDERED: MAGNESIUM SULFATE 2 GM/50 ML BAG IV SCH (10:30)
[2022-02-23] MEDS ORDERED: POTASSIUM PHOSPHATE 30 MMOL in SODIUM CHLORIDE 0.9% 500 ML 500 ML IV ONE (11:00)
--- NOTE | 2022-02-23 13:30 | Electrocardiograph Report ---
[facility] Test Date: 2022-02-22 Test Time: 16:26:47 Pat Name: CARTER JENKINS Department: Room: A261 1 Gender: F Card Game Operator: [email or web address] : 1980 Requested By: SALVADOR CAMARENA Order Number: [id number] Reading MD: Macario Lockett Measurements Intervals [place] Rate: 137 P: 79 ID: [id number] QRS: 78 QRSD: 72 T: 68 QT: 303 QTc: 459 Interpretive Statements Sinus tachycardia Anteroseptal infarct, age indeterminate Minimal ST depression, diffuse leads No previous ECG available for comparison Electronically Signed On 02-23-2022 13:30:20 EDT by Macario Lockett
--- NOTE | 2022-02-23 14:38 | Consultation ---
History of Present Illness Consult date: 02/23/22 Requesting physician: RADHA VU Reason for consult: other (DKA, acute metabolic encephalopathy) History of present illness: Patient is a 41-year-old female with history of insulin-dependent diabetes brought in by EMS for hyperglycemia and worsening mental status. She is accompanied by her who states she was in DKA roughly a month ago. They report malfunctioning of her insulin pump yesterday. She reports associated nausea. Patient was placed on an insulin infusion, a left femoral CVL was placed fro IV access. A critical care consult was placed. Patient seen and examined. Vitals, labs, medications, chart and imaging reviewed. at the bedside. She denies any chest pain, no shortness of breath, no fevers or chills. She states that the nausea is much better. Past History Past Medical History: diabetes Past Surgical History: No surgical history, Other (Reviewed) Social history: , lives with family Family history: hypertension Medications and Allergies Allergies Allergy/AdvReac Type Severity Reaction Status Date / Time No Known Allergies Allergy Unverified 02/22/22 16:40 Home Medications Medication Instructions Recorded Confirmed Last Taken Type Levothyroxine 112 mcg PO DAILY 02/23/22 02/23/22 Unknown History Liothyronine Sodium [Cytomel] 5 mcg PO DAILY 02/23/22 02/23/22 Unknown History Omeprazole 40 mg PO DAILY 02/23/22 02/23/22 Unknown History Omnipod Dash Pods (Gen 4) 100 units NOTAPPLIC Q3D 02/23/22 02/23/22 Unknown History Rosuvastatin Calcium 10 mg PO DAILY 02/23/22 02/23/22 Unknown History Synjardy 12.5-1,000 mg Tablet 12.5 - 1,000 mg PO BID 02/23/22 02/23/22 Unknown History Active Meds: Active Medications Acetaminophen (Acetaminophen 325 Mg Tab) 650 mg PO Q6H PRN PRN Reason: Pain MILD(1-3)/Fever >100.5/YIN Albuterol (Albuterol 2.5 Mg/3 Ml Nebu) 2.5 mg IH Q3HRT PRN PRN Reason: Shortness Of Breath Dextrose (Dextrose 50% In Water (25gm) 50 Ml Syringe) 0 ml IV Q30MIN PRN; Protocol PRN Reason: Hypoglycemia Hydromorphone HCl (Hydromorphone 0.5 Mg/0.5 Ml Inj) 0.25 mg IV Q4H PRN PRN Reason: Pain, Moderate (4-6) Last Admin: 02/22/22 18:36 Dose: 0.25 mg Hydromorphone HCl (Hydromorphone 0.5 Mg/0.5 Ml Inj) 0.5 mg IV Q23H PRN PRN Reason: Pain , Severe (7-10) Insulin Human Regular 100 (units/ Sodium Chloride) 100 mls @ 1 mls/hr IV TITR NATASHA; Protocol Last Titration: 02/23/22 12:30 Dose: 1.5 units/hr, 1.5 mls/hr Levofloxacin/Dextrose (Levaquin 750mg/150ml) 750 mg in 150 mls @ 100 mls/hr IV Q24H NATASHA; Protocol Last Admin: 02/22/22 19:27 Dose: 100 mls/hr Potassium Chloride/Dextrose/Sod Cl (D5w/0.45% Nacl/Kcl 20 Meq) 20 meq in 1,000 mls @ 125 mls/hr IV DIRECT NATASHA Last Admin: 02/23/22 11:52 Dose: 125 mls/hr Potassium Phosphate 30 mmol/ (Sodium Chloride) 510 mls @ 85 mls/hr IV ONCE ONE Stop: 02/23/22 16:59 Last Admin: 02/23/22 10:51 Dose: 85 mls/hr Miscellaneous Medication (Levothyroxine) 112 mcg PO 0600 [facility] Miscellaneous Medication (Liothyronine Sodium [Cytomel]) 5 mcg PO 0600 [facility] Miscellaneous Medication (Rosuvastatin Calcium) 10 mg PO DAILY [facility] Oxycodone/Acetaminophen (Oxycodone /Acetaminophen 5-325mg Tab) 1 tab PO Q6H PRN PRN Reason: Pain, Moderate (4-6) Sodium Chloride (Sodium Chloride 0.9% 10 Ml Flush Syringe) 10 ml IV BID [facility] Last Admin: 02/23/22 10:49 Dose: 10 ml Sodium Chloride (Sodium Chloride 0.9% 10 Ml Flush Syringe) 10 ml IV PRN PRN PRN Reason: LINE FLUSH Physical Examination Vital signs: Vital Signs Temp Pulse Resp BP Pulse Ox 98.2 F 130 H 16 136/82 100 02/22/22 15:19 02/22/22 15:19 02/22/22 15:19 02/22/22 15:19 02/22/22 15:19 General appearance: no acute distress, other (dry oral mucosa) Eyes: non-icteric ENT: oropharynx moist Neck: supple, no lymphadenopathy Effort: normal Ascultation: Bilateral: clear, diminished breath sounds Cardiovascular: regular rate and rhythm, other (S1,S2) Gastrointestinal: normoactive bowel sounds, soft, non-tender, non-distended Integumentary: normal Extremities: no cyanosis, no edema, pink and warm normal mental status, non-focal exam, pupils equal and round, CN II-XII normal, motor strength normal and mood appropriate, anxious Results - Laboratory Findings CBC and BMP: 02/23/22 08:34 02/23/22 08:34 ABG ABG pH 6.973 pH Units (7.350-7.450) L* 02/23/22 00:40 ABG pCO2 11.9 mm Hg 02/23/22 00:40 ABG pO2 114.1 mm Hg (80.0-90.0) H 02/23/22 00:40 ABG O2 Saturation 96.8 % (95.0-99.0) 02/23/22 00:40 Abnormal lab findings: Abnormal Labs 02/22/22 02/22/22 02/22/22 16:20 16:20 17:56 WBC 22.6 H RBC Hct 45.6 H MCV 113 H MCH 34 H RDW 15.4 H Seg Neuts % (Manual) 84.0 H Lymphocytes % (Manual) 8.0 L Seg Neutrophils # Man 19.0 H ABG pH ABG pO2 ABG HCO3 ABG Base Excess ABG Hemoglobin Sodium Potassium 5.7 H Chloride 92.5 L Carbon Dioxide 3 L* BUN 25 H Glucose 398 H POC Glucose Lactic Acid Calcium Phosphorus 8.00 H Magnesium 2.50 H AST 46 H C-Reactive Protein 02/22/22 02/22/22 02/22/22 17:56 17:56 20:57 WBC RBC Hct MCV MCH RDW Seg Neuts % (Manual) Lymphocytes % (Manual) Seg Neutrophils # Man ABG pH ABG pO2 ABG HCO3 ABG Base Excess ABG Hemoglobin Sodium Potassium 6.4 H* Chloride Carbon Dioxide 4 L* BUN 24 H Glucose 409 H POC Glucose 329 H Lactic Acid 5.10 H* Calcium Phosphorus Magnesium AST C-Reactive Protein 02/22/22 02/22/22 02/22/22 21:49 22:54 23:30 WBC RBC Hct MCV MCH RDW Seg Neuts % (Manual) Lymphocytes % (Manual) Seg Neutrophils # Man ABG pH ABG pO2 ABG HCO3 ABG Base Excess ABG Hemoglobin Sodium Potassium 5.1 H D Chloride 111.0 H Carbon Dioxide 3 L* BUN 19 H Glucose 321 H POC Glucose 333 H 298 H Lactic Acid Calcium 6.5 L D Phosphorus Magnesium AST C-Reactive Protein 02/22/22 02/23/22 02/23/22 23:30 00:22 00:40 WBC RBC Hct MCV MCH RDW Seg Neuts % (Manual) Lymphocytes % (Manual) Seg Neutrophils # Kyle ABG pH 6.973 L* ABG pO2 114.1 H ABG HCO3 2.7 L ABG Base Excess -27.1 L ABG Hemoglobin 11.0 L Sodium Potassium Chloride Carbon Dioxide BUN Glucose POC Glucose 249 H Lactic Acid 2.20 H* Calcium Phosphorus Magnesium AST C-Reactive Protein 02/23/22 02/23/22 02/23/22 00:53 01:52 02:57 WBC RBC Hct MCV MCH RDW Seg Neuts % (Manual) Lymphocytes % (Manual) Seg Neutrophils # Man ABG pH ABG pO2 ABG HCO3 ABG Base Excess ABG Hemoglobin Sodium Potassium Chloride Carbon Dioxide BUN Glucose POC Glucose 239 H 209 H 183 H Lactic Acid Calcium Phosphorus Magnesium AST C-Reactive Protein 02/23/22 02/23/22 02/23/22 03:54 04:55 06:54 WBC RBC Hct MCV MCH RDW Seg Neuts % (Manual) Lymphocytes % (Manual) Seg Neutrophils # Man ABG pH ABG pO2 ABG HCO3 ABG Base Excess ABG Hemoglobin Sodium Potassium Chloride Carbon Dioxide BUN Glucose POC Glucose 155 H 166 H 155 H Lactic Acid Calcium Phosphorus Magnesium AST C-Reactive Protein 02/23/22 02/23/22 02/23/22 08:34 08:34 08:34 WBC 13.5 H RBC 3.28 L Hct MCV 105 H MCH 34 H RDW Seg Neuts % (Manual) Lymphocytes % (Manual) Seg Neutrophils # Man ABG pH ABG pO2 ABG HCO3 ABG Base Excess ABG Hemoglobin Sodium 146 H Potassium Chloride 116.9 H Carbon Dioxide 14 L D BUN Glucose 166 H POC Glucose Lactic Acid Calcium 7.0 L Phosphorus 0.80 L* D Magnesium AST C-Reactive Protein 3.20 H - Diagnostic Findings Chest x-ray: image reviewed Assessment and Plan DKA (diabetic ketoacidosis) Severe Anion Gap Metabolic Acidosis Sepsis RLL Pneumonia, aspiration Acute metabolic encephalopathy h/o Hypothyroidism Hyperchloremic hypernatremia Hyperkalemia Volume Depletion/Dehydration Lactic acidosis IDDM- on insulin pump -Volume resuscitation, serial BMPs, insulin infusion, hourly glucose checks, replete electrolytes per protocol -Stop bicarbonate infusion. Discontinue femoral CVL -Replete electrolytes per DKA protocol, Serial BMPs -VTE prophylaxis -Empiric antibiotics, incentive spirometry and airway clearance -Check procal and CRP - if procal is normal will de-escalate antibiotics. The infiltrate on imaging may represent aspiration pneumonitis rather than a true pneumonia - Avoid benzodiazepines to reduce the possibility of delirium - Maintenance of sleep-wake cycle - Avoid nephrotoxic medications - Monitor and replace electrolytes as needed - Continue levothyroxine and Cytomel The high probability of a clinically significant, sudden or life threatening det erioration of the endocrine system required my full and direct attention, intervention and personal management. The aggregate critical care time was [35] minutes. This time is in addition to time spent performing reported procedures but includes the following: [x] Data Review and interpretation [x] Patient assessment and monitoring of vital signs [x] Documentation [x] Medication orders and management
[2022-02-23 16:58] LABS: Blood Urea Nitrogen 14 mg/dL (7-17); Calcium 6.7 mg/dL (8.4-10.2); Hemolysis Index 6
[2022-02-23 17:20] LABS: BUN/Creatinine Ratio 28
[2022-02-23] MEDS ORDERED: INSULIN GLARGINE 100 UNITS/ML SUB-Q SCH (19:30)
[2022-02-23] MEDS: INSULIN LISPRO 100 UNIT/ML SUB-Q SCH (21:02)
[2022-02-23] MEDS: FAMOTIDINE 10 MG TAB PO SCH (21:06)
[2022-02-24 04:48] LABS: Hematocrit 32.8 % (30.3-42.9); Mean Corpuscular HGB Conc 34 % (30-34); Mean Corpuscular Volume 101 fl (79-97); Platelet Count 176 K/mm3 (140-440); Red Blood Count 3.25 M/mm3 (3.65-5.03); Red Cell Distribution Width 14.1 % (13.2-15.2)
[2022-02-24 05:06] LABS: BUN/Creatinine Ratio 18; Blood Urea Nitrogen 9 mg/dL (7-17); Calcium 6.8 mg/dL (8.4-10.2); Hemolysis Index 7
[2022-02-24] MEDS ORDERED: NON-FORMULARY EACH (Levothyroxine Tablet) PO SCH (06:00)
[2022-02-24] MEDS ORDERED: LIOTHYRONINE 5 MCG PO SCH (06:00)
[2022-02-24] MEDS ORDERED: LIOTHYRONINE SODIUM 5 MCG PO SCH (06:00)
[2022-02-24] MEDS ORDERED: LEVOTHYROXINE 112 MCG TAB PO SCH (06:00)
[2022-02-24] MEDS: INSULIN LISPRO 100 UNIT/ML SUB-Q SCH ×2 (08:13→12:01)
[2022-02-24] MEDS ORDERED: ROSUVASTATIN CALCIUM PO SCH (10:00)
--- NOTE | 2022-02-24 10:34 | Discharge Summary ---
<ALLA FARIA - Last Filed: 02/24/22 16:21> Providers - Providers Date of Admission: 02/22/22 17:44 Date of discharge: 02/24/22 Attending physician: MIESHA ABRAMS MD 02/22/22 17:44 Consult to Physician [CONS] Routine Comment: dr. leigh o/c [facility] Consulting Provider: MARGOT CRUZ Physician Instructions: Reason For Exam: DKA, sepsis Primary care physician: MARLON DUBOIS Hospitalization Reason for admission: Diabetic Ketoacidosis(DKA) Condition: Stable Hospital course: This is a 41-year-old female with known past medical history of IDDM and hypothyroidism admitted for DKA Hospital Course to Date: 02/23: Mentation improved this am, stable on RA. Remains on DKA protocal and bcarb gtt. Will hold sodium bcarb gtt in setting of hypernatremia, CO2 and anion gap improved. Continue insulin gtt and IVF resuscitation per DKA protocol. This an CXR reviewed, continue IV antibiotic for now. Repeat labs ordered, Check CRP and procal. Continue to trend lactic acid. Monitor and replete electrolytes as needed. 02/24: Transitioned to subQ insulin overnight. BG remains stable this am. Patient voiced feeling a lot better, no s/s of any distress noted. D/W CCM, patient is stable for discharge. Thorough discussion with patient and patient's , and the agree to discharge. SSI and long acting insulin with supplies prescribed. Patient to follow up with her curb worker in [place] on Saturday and PCP within 7days. 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 - Insulin pump malfunction, patient did not have any back up insulin - Presented with high BG, with severe anion gap metabolic acidosis - S/p DKA protocol was initiated and required Nabcarb gtt - Transitioned to SubQ insulin overnight, stable this am - Monitor and replace electrolytes as needed - CCM consulted #Sepsis #RLL Pneumonia- most likely aspiration #Leukocytosis-resolved #Lactic Acidosis-resolved - CXR Right lower lobe infiltrate likely represents pneumonia - UA neg nitrate and leukocytes - Presented with leukocytosis and elevated lactic - Patient is afebrile, on RA this am - Empiric IV abx- Levaquin initiated - Trend CBC and Lactic acid - procal and CRP wnr - CCM consulted #Acute Metabolic Encephalopathy-resolved - probably due to DKA - Mentation improved this am - s/p DKA protocol - Avoid benzodiazepine to reduce the possibility of delirium - PRN Analgesia for pain control - Maintenance of sleep-wake cycle #Hypernatremia-improved #Hyperkalemia-resolved #Volume Depletion/Dehydration - Most likely due to DKA - ST on the monitor with no significant ST changes - S/p DKA and NaBcarb protocol - Strict intake and output - Avoid nephrotoxic medications - Monitor and replace electrolytes as needed #Hypothyroidism - On levothyroxine and Liothyronine sodium at home - Resume home meds, Liothyronine sodium- nonformulary - Okay to use own med if check and approve by pharmacy #GI/DVT Prophylaxis - PPI- Pepcid - SCD to bilateral lower extremities while in bed #Advance Care Planning - Disease education, care plan discussed, diagnoses and prognosis discussed with patient and her at the bedside. Patient is full code. They acknowledged understanding and agreement with current care plan - Patient to follow up with her curb worker in [place] on Saturday and PCP within 7days. #Preventative Health Care - Patient has been counseled regarding consistent carbohydrate diet, monitoring of insulin pump Disposition: HOME / SELF CARE / HOMELESS Final Discharge Diagnosis (Prints w/discharge instructions): IDDM Time spent for discharge: 35 Core Measure Documentation - Palliative Care Palliative Care/ Comfort Measures: Not Applicable - Core Measures Any of the following diagnoses?: none Exam - Constitutional Vitals: Temp Pulse Resp BP Pulse Ox 99.0 F 104 H 24 111/75 99 02/24/22 03:36 02/24/22 09:00 02/24/22 09:00 02/24/22 09:00 02/24/22 09:00 General appearance: Present: no acute distress - EENT Eyes: Present: PERRL, EOM intact ENT: hearing intact, clear oral mucosa - Neck Neck: Present: supple - Respiratory Respiratory effort: normal Respiratory: bilateral: diminished - Cardiovascular Rhythm: regular Heart Sounds: Present: S1 & S2 - Extremities Extremities: no ischemia, pulses intact, pulses symmetrical Peripheral Pulses: within normal limits - Abdominal General gastrointestinal: Present: soft, non-distended, normal bowel sounds Female genitourinary: Present: deferred - Rectal Rectal Exam: deferred - Integumentary Integumentary: Present: clear, warm, dry - Musculoskeletal Musculoskeletal: generalized weakness - Psychiatric Psychiatric: appropriate mood/affect, cooperative - Neurologic Neurologic: CNII-XII intact, moves all extremities - Allied Health Allied health notes reviewed: nursing Plan Activity: no restrictions Diet: diabetic Wound: open to air Care Plan Goals: Continue insulin therapy as prescribe. Stay hydrated- drink plenty of water Follow up with your curb worker on Saturday for further recommendations Follow up with your PCP witin 7 to 10 days If your symptoms reoccur please return the ER for evaluation and treatment. Follow up with: MARLON DUBOIS MD [Primary Care Provider] - 7 Days Prescriptions: Insulin Glargine [Lantus VIAL] 25 units SUB-Q QHS #10 ml Insulin NPH Human Isophane [Novolin N] 0 unit SQ ACHS #1 vial Other Discharge Orders: Glucometer (Amb) Location: None Selected Glucometer supplies[Amb] Location: None Selected <MIESHA ABRAMS - Last Filed: 02/25/22 07:23> Providers - Providers Date of Admission: 02/22/22 17:44 Attending physician: MIESHA ABRAMS MD 02/22/22 17:44 Consult to Physician [CONS] Routine Comment: dr. reese schaeffer/gareth peck Consulting Provider: MARGOT CRUZ Physician Instructions: Reason For Exam: DKA, sepsis Primary care physician: MARLON DUBOIS Hospitalization Hospital course: I saw and evaluated the patient. I agree with the findings and the plan of care as documented in the Nurse Practitioner's~note, with the following corrections and additions. Exam - Constitutional Vitals: Temp Pulse Resp BP Pulse Ox 97.9 F 97 H 25 H 124/88 99 02/24/22 12:00 02/24/22 11:00 02/24/22 11:00 02/24/22 11:00 02/24/22 11:00
--- NOTE | 2022-02-24 10:51 | Progress Note ---
Assessment and Plan DKA (diabetic ketoacidosis) Severe Anion Gap Metabolic Acidosis Sepsis RLL Pneumonia, aspiration Acute metabolic encephalopathy h/o Hypothyroidism Hyperchloremic hypernatremia Hyperkalemia Volume Depletion/Dehydration Lactic acidosis IDDM- on insulin pump -Resume home insulin regimen -Replete electrolytes- replace phosphate and potassium -Discharge planning Subjective Date of service: 02/24/22 Interval history: f/up for DKA; acute metabolic encephalopathy Seen and examined. Vitals, labs, medications, chart reviewed. Discussed with nursing and respiratory staff. Off insulin infusion Much improved- denies any chest pain, no shortness of breath, no fevers, no chills. No nausea or vomiting, no diarrhea Objective Vital Signs - 12hr 02/23/22 02/23/22 02/23/22 23:00 23:05 23:29 Temperature Pulse Rate 114 H 114 H 116 H Respiratory 25 H 20 23 Rate Blood Pressure 114/70 114/70 O2 Sat by Pulse 98 100 98 Oximetry 02/23/22 02/24/22 02/24/22 23:49 00:00 01:00 Temperature 99.0 F Pulse Rate 121 H 113 H Respiratory 24 21 Rate Blood Pressure 114/79 115/69 O2 Sat by Pulse 99 96 Oximetry 02/24/22 02/24/22 02/24/22 01:30 02:00 03:00 Temperature Pulse Rate 109 H 109 H 102 H Respiratory 20 22 22 Rate Blood Pressure 111/77 117/80 O2 Sat by Pulse 100 99 98 Oximetry 02/24/22 02/24/22 02/24/22 03:30 03:36 04:00 Temperature 99.0 F Pulse Rate 102 H 107 H Respiratory 21 Rate Blood Pressure 115/72 O2 Sat by Pulse 97 Oximetry 02/24/22 02/24/22 02/24/22 04:18 05:00 06:00 Temperature Pulse Rate 107 H 112 H 107 H Respiratory 20 20 28 H Rate Blood Pressure 108/74 108/74 O2 Sat by Pulse 100 95 97 Oximetry 02/24/22 02/24/22 02/24/22 07:00 08:00 08:20 Temperature Pulse Rate 101 H 102 H Respiratory 20 19 20 Rate Blood Pressure 118/83 110/81 O2 Sat by Pulse 100 98 100 Oximetry 02/24/22 09:00 Temperature Pulse Rate 104 H Respiratory 24 Rate Blood Pressure 111/75 O2 Sat by Pulse 99 Oximetry Constitutional: no acute distress, alert Eyes: non-icteric ENT: oropharynx moist Neck: supple, no lymphadenopathy Effort: normal Ascultation: Bilateral: clear, diminished breath sounds Cardiovascular: regular rate and rhythm, other (S1,S2) Gastrointestinal: normoactive bowel sounds, soft, non-tender, non-distended Integumentary: normal Extremities: no cyanosis, no edema, pink and warm Neurologic: normal mental status, non-focal exam, pupils equal and round, CN II- XII normal, motor strength normal and Psychiatric: mood appropriate, affect normal CBC and BMP: 02/24/22 04:00 02/24/22 04:00 ABG, PT/INR, D-dimer: ABG ABG pH 6.973 pH Units (7.350-7.450) L* 02/23/22 00:40 ABG pCO2 11.9 mm Hg 02/23/22 00:40 ABG pO2 114.1 mm Hg (80.0-90.0) H 02/23/22 00:40 ABG O2 Saturation 96.8 % (95.0-99.0) 02/23/22 00:40 Abnormal lab findings: Abnormal Labs 02/22/22 02/22/22 02/22/22 16:20 16:20 17:56 WBC 22.6 H RBC Hct 45.6 H MCV 113 H MCH 34 H RDW 15.4 H Seg Neuts % (Manual) 84.0 H Lymphocytes % (Manual) 8.0 L Seg Neutrophils # Man 19.0 H ABG pH ABG pO2 ABG HCO3 ABG Base Excess ABG Hemoglobin Sodium Potassium 5.7 H Chloride 92.5 L Carbon Dioxide 3 L* BUN 25 H Creatinine Glucose 398 H POC Glucose Hemoglobin A1c Lactic Acid Calcium Phosphorus 8.00 H Magnesium 2.50 H AST 46 H C-Reactive Protein 02/22/22 02/22/22 02/22/22 17:56 17:56 20:57 WBC RBC Hct MCV MCH RDW Seg Neuts % (Manual) Lymphocytes % (Manual) Seg Neutrophils # Man ABG pH ABG pO2 ABG HCO3 ABG Base Excess ABG Hemoglobin Sodium Potassium 6.4 H* Chloride Carbon Dioxide 4 L* BUN 24 H Creatinine Glucose 409 H POC Glucose 329 H Hemoglobin A1c Lactic Acid 5.10 H* Calcium Phosphorus Magnesium AST C-Reactive Protein 02/22/22 02/22/22 02/22/22 21:49 22:54 23:30 WBC RBC Hct MCV MCH RDW Seg Neuts % (Manual) Lymphocytes % (Manual) Seg Neutrophils # Man ABG pH ABG pO2 ABG HCO3 ABG Base Excess ABG Hemoglobin Sodium Potassium 5.1 H D Chloride 111.0 H Carbon Dioxide 3 L* BUN 19 H Creatinine Glucose 321 H POC Glucose 333 H 298 H Hemoglobin A1c Lactic Acid Calcium 6.5 L D Phosphorus Magnesium AST C-Reactive Protein 02/22/22 02/23/22 02/23/22 23:30 00:22 00:40 WBC RBC Hct MCV MCH RDW Seg Neuts % (Manual) Lymphocytes % (Manual) Seg Neutrophils # Man ABG pH 6.973 L* ABG pO2 114.1 H ABG HCO3 2.7 L ABG Base Excess -27.1 L ABG Hemoglobin 11.0 L Sodium Potassium Chloride Carbon Dioxide BUN Creatinine Glucose POC Glucose 249 H Hemoglobin A1c Lactic Acid 2.20 H* Calcium Phosphorus Magnesium AST C-Reactive Protein 02/23/22 02/23/22 02/23/22 00:53 01:52 02:57 WBC RBC Hct MCV MCH RDW Seg Neuts % (Manual) Lymphocytes % (Manual) Seg Neutrophils # Man ABG pH ABG pO2 ABG HCO3 ABG Base Excess ABG Hemoglobin Sodium Potassium Chloride Carbon Dioxide BUN Creatinine Glucose POC Glucose 239 H 209 H 183 H Hemoglobin A1c Lactic Acid Calcium Phosphorus Magnesium AST C-Reactive Protein 02/23/22 02/23/22 02/23/22 03:54 04:55 06:54 WBC RBC Hct MCV MCH RDW Seg Neuts % (Manual) Lymphocytes % (Manual) Seg Neutrophils # Man ABG pH ABG pO2 ABG HCO3 ABG Base Excess ABG Hemoglobin Sodium Potassium Chloride Carbon Dioxide BUN Creatinine Glucose POC Glucose 155 H 166 H 155 H Hemoglobin A1c Lactic Acid Calcium Phosphorus Magnesium AST C-Reactive Protein 02/23/22 02/23/22 02/23/22 08:34 08:34 08:34 WBC 13.5 H RBC 3.28 L Hct MCV 105 H MCH 34 H RDW Seg Neuts % (Manual) Lymphocytes % (Manual) Seg Neutrophils # Man ABG pH ABG pO2 ABG HCO3 ABG Base Excess ABG Hemoglobin Sodium 146 H Potassium Chloride 116.9 H Carbon Dioxide 14 L D BUN Creatinine Glucose 166 H POC Glucose Hemoglobin A1c Lactic Acid Calcium 7.0 L Phosphorus 0.80 L* D Magnesium AST C-Reactive Protein 3.20 H 02/23/22 02/23/22 02/23/22 16:26 16:28 16:28 WBC RBC Hct MCV MCH RDW Seg Neuts % (Manual) Lymphocytes % (Manual) Seg Neutrophils # Man ABG pH ABG pO2 ABG HCO3 ABG Base Excess ABG Hemoglobin Sodium 146 H Potassium Chloride 114.9 H Carbon Dioxide 16 L BUN Creatinine 0.5 L Glucose 156 H POC Glucose 146 H Hemoglobin A1c 7.7 H Lactic Acid Calcium 6.7 L Phosphorus Magnesium AST C-Reactive Protein 02/23/22 02/23/22 02/24/22 19:21 20:28 04:00 WBC RBC 3.25 L Hct MCV 101 H MCH 34 H RDW Seg Neuts % (Manual) Lymphocytes % (Manual) Seg Neutrophils # Man ABG pH ABG pO2 ABG HCO3 ABG Base Excess ABG Hemoglobin Sodium Potassium Chloride Carbon Dioxide BUN Creatinine Glucose POC Glucose 196 H 159 H Hemoglobin A1c Lactic Acid Calcium Phosphorus Magnesium AST C-Reactive Protein 02/24/22 04:00 WBC RBC Hct MCV MCH RDW Seg Neuts % (Manual) Lymphocytes % (Manual) Seg Neutrophils # Man ABG pH ABG pO2 ABG HCO3 ABG Base Excess ABG Hemoglobin Sodium Potassium 3.5 L Chloride 109.6 H Carbon Dioxide 19 L BUN Creatinine 0.5 L Glucose POC Glucose Hemoglobin A1c Lactic Acid Calcium 6.8 L Phosphorus 1.80 L D Magnesium AST C-Reactive Protein Allied health notes reviewed: nursing
[2022-02-24] MEDS ORDERED: POTASSIUM PHOSPHATE 15 MMOL in SODIUM CHLORIDE 0.9% 250ML 250 ML IV ONE (11:00)
[2022-02-24] MEDS: FAMOTIDINE 10 MG TAB PO SCH (11:05)
[2022-02-24 11:36] VITALS: BP 124/88
[2022-02-24] MEDS ORDERED: INSULIN GLARGINE 100 UNITS/ML SUB-Q SCH (22:00)
== END 2022-02-24 14:30 | disposition home or self-care (01) | DRG 871 ==
LOC: ED 14:57 → CC1 17:44
PROVIDERS: ADMIT Internal Medicine; ATTEND Internal Medicine
PROC: 06HM33Z Insertion of Infusion Device into Right Femoral Vein, Percutaneous Approach (ICD-10-PCS; principal; 2022-02-22)
PROC: B54BZZA Ultrasonography of Right Lower Extremity Veins, Guidance (ICD-10-PCS; 2022-02-22)
PROC: 4A033R1 Measurement of Arterial Saturation, Peripheral, Percutaneous Approach (ICD-10-PCS; 2022-02-23)
DX: A41.9 Sepsis, unspecified organism (principal); E11.10 Type 2 diabetes mellitus with ketoacidosis without coma; G92.8 Other toxic encephalopathy; J18.9 Pneumonia, unspecified organism; E87.0 Hyperosmolality and hypernatremia; E86.9 Volume depletion, unspecified; E87.5 Hyperkalemia; E03.9 Hypothyroidism, unspecified; E86.0 Dehydration; Z82.49 Family history of ischemic heart disease and other diseases of the circulatory system
CPT/HCPCS: 36415; 36600; 71045; 80048; 80076; 81001; 82010; 82140; 82803; 82962; 83036; 83690; 83735; 84100; 84145; 85007; 85025; 85027; 86140; 86850; 86900; 86901; 93005; G0378; J3480; J3490; J7510; Q9967; J1815; J1956; J2060; J3475; J7030; J7040; J7050